=== PATIENT | male | born 1970 | race Two or more races ===

== ENCOUNTER 2021-08-25 22:38 | Inpatient (IN) | payer OTHER ==
[2021-08-25 23:16] VITALS: BMI 20.8
[2021-08-25] MEDS ORDERED: ONDANSETRON *ODT* 4 MG TABLET SL PRN (23:23)
[2021-08-25] MEDS ORDERED: MENTHOL/PHENOL 1 EACH UD MM PRN (23:23)
[2021-08-25] MEDS ORDERED: NICOTINE POLACRILEX 2 MG GUM BUC PRN (23:23)
[2021-08-25] MEDS ORDERED: ACETAMINOPHEN 325 MG TABLET (FP) PO PRN ×2 (23:23)
[2021-08-25] MEDS ORDERED: BISMUTH SUBSALICYLATE 524 MG/30 ML PO PRN (23:23)
[2021-08-25] MEDS ORDERED: IBUPROFEN 400 MG TABLET (FP) PO PRN (23:23)
[2021-08-25] MEDS ORDERED: MAGNESIUM HYDROX 2400MG/30ML ORAL SUSPENSION 30 ML CUP PO PRN (23:23)
[2021-08-25] MEDS ORDERED: MAG HYDROX/AL HYDROX/SIMETH 30 ML UNIT-DOSE CUP PO PRN (23:23)
[2021-08-25] MEDS ORDERED: MAGNESIUM CITRATE 300 ML BOTTLE PO PRN (23:23)
[2021-08-25] MEDS ORDERED: LOPERAMIDE HCL 2 MG CAPSULE PO PRN (23:23)
[2021-08-25] MEDS ORDERED: methaDONE HCL 10 MG TABLET (FOR DETOX USE ONLY) PO ONE (23:25)
[2021-08-26] MEDS ORDERED: methaDONE HCL 10 MG TABLET (FOR DETOX USE ONLY) ONE (02:09)
[2021-08-26] MEDS: METHOCARBAMOL 500 MG TABLET PO PRN ×3 (02:44→22:12)
[2021-08-26] MEDS: hydrOXYzine PAMOATE 25 MG CAPSULE (FP) PO PRN ×2 (02:44→20:24)
[2021-08-26] MEDS: cloNIDine HCL 0.1 MG TABLET PO PRN ×2 (06:42→17:54)
[2021-08-26] MEDS ORDERED: methaDONE HCL 10 MG TABLET (FOR DETOX USE ONLY) PO ONE ×2 (10:00→10:26)
[2021-08-26] MEDS: PRENATAL VITAMINS W/ FOLIC ACID TABLET (FP) PO SCH (10:13)
[2021-08-26 11:57] LABS: HEMATOCRIT 38.5 % (35.4-49); HEMOGLOBIN 12.5 GM/dL (11.7-16.9); MCHC 32.4 g/dl (32.0-35.9); MEAN CELL VOLUME 89.5 fl (80-96); MEAN PLT VOLUME 11.2 fl (7.5-11.1); PLATELET COUNT 136 10^3/uL (134-434); RDW 13.3 % (11.9-15.9)
[2021-08-26] MEDS: diazePAM 5 MG TABLET PO PRN ×3 (12:09→22:13)
[2021-08-26 12:17] LABS: ALBUMIN 3.3 g/dl (3.4-5.0); CALCIUM 8.4 mg/dL (8.5-10.1)
[2021-08-26 12:21] LABS: CREATININE 0.8 mg/dL (0.55-1.3)
[2021-08-26 12:22] LABS: BILIRUBIN,TOTAL 0.6 mg/dL (0.2-1); TOT PROT 5.9 g/dl (6.4-8.2)
[2021-08-26 16:01] LABS: HIV INTERPRETATION NEGATIVE (NEGATIVE)
[2021-08-26] MEDS: THIAMINE HCL 100 MG TABLET (FP) PO SCH (22:12)
[2021-08-26] MEDS: MELATONIN 5 MG TABLETS PO PRN (22:12)
[2021-08-27] MEDS: cloNIDine HCL 0.1 MG TABLET PO PRN (00:33)
[2021-08-27] MEDS: hydrOXYzine PAMOATE 25 MG CAPSULE (FP) PO PRN ×2 (00:33→22:15)
[2021-08-27] MEDS ORDERED: methaDONE HCL 10 MG TABLET (FOR DETOX USE ONLY) PO ONE ×2 (10:00)
[2021-08-27] MEDS: PRENATAL VITAMINS W/ FOLIC ACID TABLET (FP) PO SCH (10:31)
[2021-08-27] MEDS: diazePAM 5 MG TABLET PO PRN ×2 (10:31→22:15)
[2021-08-27] MEDS: METHOCARBAMOL 500 MG TABLET PO PRN (22:15)
[2021-08-27] MEDS: THIAMINE HCL 100 MG TABLET (FP) PO SCH (22:15)
[2021-08-27] MEDS: MELATONIN 5 MG TABLETS PO PRN (22:15)
[2021-08-28] MEDS ORDERED: methaDONE HCL 10 MG TABLET (FOR DETOX USE ONLY) PO ONE ×2 (01:00→10:00)
[2021-08-28] MEDS: PRENATAL VITAMINS W/ FOLIC ACID TABLET (FP) PO SCH (11:09)
[2021-08-28] MEDS: hydrOXYzine PAMOATE 25 MG CAPSULE (FP) PO PRN ×2 (17:31→22:33)
[2021-08-28] MEDS: diazePAM 5 MG TABLET PO PRN ×2 (17:32→22:35)
[2021-08-28] MEDS: cloNIDine HCL 0.1 MG TABLET PO PRN (17:32)
[2021-08-28] MEDS: CALCIUM CARBONATE 650 MG TABLET PO SCH (22:33)
[2021-08-28] MEDS: MELATONIN 5 MG TABLETS PO PRN (22:33)
[2021-08-28] MEDS: THIAMINE HCL 100 MG TABLET (FP) PO SCH (22:33)
[2021-08-28] MEDS: METHOCARBAMOL 500 MG TABLET PO PRN (22:34)
[2021-08-29] MEDS: diazePAM 5 MG TABLET PO PRN (03:26)
[2021-08-29] MEDS: CALCIUM CARBONATE 650 MG TABLET PO SCH ×2 (10:27→22:27)
[2021-08-29] MEDS: PRENATAL VITAMINS W/ FOLIC ACID TABLET (FP) PO SCH (10:27)
[2021-08-29] MEDS: METHOCARBAMOL 500 MG TABLET PO PRN (17:40)
[2021-08-29] MEDS: cloNIDine HCL 0.1 MG TABLET PO PRN (17:40)
[2021-08-29] MEDS: hydrOXYzine PAMOATE 25 MG CAPSULE (FP) PO PRN (17:40)
[2021-08-29] MEDS: THIAMINE HCL 100 MG TABLET (FP) PO SCH (22:27)
[2021-08-29] MEDS: MELATONIN 5 MG TABLETS PO PRN (22:28)
[2021-08-30] MEDS: hydrOXYzine PAMOATE 25 MG CAPSULE (FP) PO PRN ×2 (02:21→22:14)
[2021-08-30] MEDS: METHOCARBAMOL 500 MG TABLET PO PRN ×2 (02:21→22:15)
[2021-08-30] MEDS ORDERED: methaDONE HCL 10 MG TABLET (FOR DETOX USE ONLY) PO ONE (10:00)
[2021-08-30] MEDS: PRENATAL VITAMINS W/ FOLIC ACID TABLET (FP) PO SCH (10:37)
[2021-08-30] MEDS: CALCIUM CARBONATE 650 MG TABLET PO SCH ×2 (10:37→22:13)
[2021-08-30] MEDS: THIAMINE HCL 100 MG TABLET (FP) PO SCH (22:14)
[2021-08-30] MEDS: MELATONIN 5 MG TABLETS PO PRN (22:14)
[2021-08-31] MEDS: cloNIDine HCL 0.1 MG TABLET PO PRN (00:35)
[2021-08-31 08:49] VITALS: BP 128/73; PULSE 77; TEMP 96.8
[2021-08-31] MEDS: PRENATAL VITAMINS W/ FOLIC ACID TABLET (FP) PO SCH (09:19)
== END 2021-08-31 09:15 | disposition home or self-care (01) | DRG 773 ==
LOC: YASAS 22:38 → Y3N 08-26 01:59
PROVIDERS: ADMIT Allergy & Immunology; ATTEND Allergy & Immunology
PROC: HZ2ZZZZ Detoxification Services for Substance Abuse Treatment (ICD-10-PCS; principal; 2021-08-26)
DX: F11.23 Opioid dependence with withdrawal (principal); F14.20 Cocaine dependence, uncomplicated; F10.10 Alcohol abuse, uncomplicated; F17.210 Nicotine dependence, cigarettes, uncomplicated; R03.0 Elevated blood-pressure reading, without diagnosis of hypertension; E83.51 Hypocalcemia
CPT/HCPCS: 36415; 80053; 85027; 86780; 87389; 87811; C9803; J0735; U0003; U0005

== ENCOUNTER 2021-12-25 09:06 | Inpatient (IN) | payer OTHER ==
[2021-12-25 11:22] VITALS: BMI 21.9
[2021-12-25] MEDS ORDERED: hydrOXYzine PAMOATE 25 MG CAPSULE (FP) PO PRN (11:29)
[2021-12-25] MEDS ORDERED: MAGNESIUM HYDROX 2400MG/30ML ORAL SUSPENSION 30 ML CUP PO PRN (11:29)
[2021-12-25] MEDS ORDERED: MAG HYDROX/AL HYDROX/SIMETH 30 ML UNIT-DOSE CUP PO PRN (11:29)
[2021-12-25] MEDS ORDERED: ONDANSETRON *ODT* 4 MG TABLET SL PRN (11:29)
[2021-12-25] MEDS ORDERED: CALAMINE 8% TOPICAL LOTION 177 ML BOTTLE TP PRN (11:29)
[2021-12-25] MEDS ORDERED: BENZOCAINE/MENTHOL (CHLORASEPTIC ) LOZENGE MM PRN (11:29)
[2021-12-25] MEDS ORDERED: BISMUTH SUBSALICYLATE 524 MG/30 ML PO PRN (11:29)
[2021-12-25] MEDS ORDERED: DICYCLOMINE HCL 10 MG CAPSULE PO PRN (11:29)
[2021-12-25] MEDS ORDERED: IBUPROFEN 400 MG TABLET (FP) PO PRN (11:29)
[2021-12-25] MEDS ORDERED: IBUPROFEN 600 MG TABLET (FP) PO PRN (11:29)
[2021-12-25] MEDS ORDERED: MAGNESIUM CITRATE 300 ML BOTTLE PO PRN (11:29)
[2021-12-25] MEDS ORDERED: ACETAMINOPHEN 325 MG TABLET (FP) PO PRN ×2 (11:29)
[2021-12-25] MEDS ORDERED: LOPERAMIDE HCL 2 MG CAPSULE PO PRN (11:29)
[2021-12-25] MEDS ORDERED: cloNIDine HCL 0.1 MG TABLET PO ONE (11:31)
[2021-12-25] MEDS ORDERED: diazePAM 5 MG TABLET PO PRN ×2 (11:31→16:47)
[2021-12-25] MEDS ORDERED: methaDONE HCL 10 MG TABLET (FOR DETOX USE ONLY) PO ONE (16:47)
[2021-12-25] MEDS: diazePAM 5 MG TABLET PO SCH ×2 (17:42→22:16)
[2021-12-25] MEDS: cloNIDine HCL 0.1 MG TABLET PO PRN ×2 (19:00→22:45)
[2021-12-25] MEDS: METHOCARBAMOL 500 MG TABLET PO PRN (22:16)
[2021-12-25] MEDS: MELATONIN 5 MG TABLETS PO SCH (22:16)
[2021-12-25] MEDS: THIAMINE HCL 100 MG TABLET (FP) PO SCH (22:17)
[2021-12-26] MEDS: diazePAM 5 MG TABLET PO SCH ×4 (06:52→22:15)
[2021-12-26] MEDS ORDERED: methaDONE HCL 10 MG TABLET (FOR DETOX USE ONLY) ONE (08:54)
[2021-12-26] MEDS ORDERED: cloNIDine HCL 0.1 MG TABLET PO PRN (09:33)
[2021-12-26] MEDS ORDERED: methaDONE HCL 10 MG TABLET (FOR DETOX USE ONLY) PO ONE (09:33)
[2021-12-26] MEDS ORDERED: diazePAM 5 MG TABLET PO PRN (09:33)
[2021-12-26] MEDS: PRENATAL VITAMINS W/ FOLIC ACID TABLET (FP) PO SCH (10:09)
[2021-12-26 10:40] LABS: HEMATOCRIT 41.7 % (35.4-49); HEMOGLOBIN 13.7 GM/dL (11.7-16.9); MCH 28.9 pg (25.7-33.7); MCHC 32.9 g/dl (32.0-35.9); MEAN PLT VOLUME 10.8 fl (7.5-11.1); PLATELET COUNT 149 10^3/uL (134-434); RBC 4.74 M/mm3 (4.00-5.60); RDW 13.6 % (11.9-15.9); WHITE BLOOD COUNT 5.4 K/mm3 (4.0-10.0)
[2021-12-26 10:45] LABS: ALBUMIN 3.7 g/dl (3.4-5.0); BLOOD UREA NITROGEN 13.3 mg/dL (7-18); CREATININE 0.7 mg/dL (0.55-1.3)
[2021-12-26 10:47] LABS: BILIRUBIN,TOTAL 0.9 mg/dL (0.2-1); TOT PROT 6.8 g/dl (6.4-8.2)
[2021-12-26] MEDS ORDERED: diazePAM 5 MG TABLET PO SCH (11:00)
[2021-12-26] MEDS: MELATONIN 5 MG TABLETS PO SCH (22:15)
[2021-12-26] MEDS: THIAMINE HCL 100 MG TABLET (FP) PO SCH (22:15)
[2021-12-26] MEDS: METHOCARBAMOL 500 MG TABLET PO PRN (22:15)
[2021-12-27] MEDS: diazePAM 5 MG TABLET PO SCH ×3 (05:27→22:27)
[2021-12-27] MEDS ORDERED: methaDONE HCL 10 MG TABLET (FOR DETOX USE ONLY) PO ONE (10:00)
[2021-12-27] MEDS: PRENATAL VITAMINS W/ FOLIC ACID TABLET (FP) PO SCH (10:16)
[2021-12-27] MEDS: MELATONIN 5 MG TABLETS PO SCH (22:27)
[2021-12-27] MEDS: THIAMINE HCL 100 MG TABLET (FP) PO SCH (22:27)
[2021-12-27] MEDS: METHOCARBAMOL 500 MG TABLET PO PRN (22:29)
[2021-12-28] MEDS: diazePAM 5 MG TABLET PO SCH ×2 (05:11→18:15)
[2021-12-28] MEDS ORDERED: diazePAM 5 MG TABLET PO SCH (06:00)
[2021-12-28] MEDS ORDERED: methaDONE HCL 10 MG TABLET (FOR DETOX USE ONLY) ONE (09:49)
[2021-12-28] MEDS ORDERED: methaDONE HCL 10 MG TABLET (FOR DETOX USE ONLY) PO ONE (10:00)
[2021-12-28] MEDS: PRENATAL VITAMINS W/ FOLIC ACID TABLET (FP) PO SCH (10:43)
[2021-12-28] MEDS ORDERED: NICOTINE 10 MG CARTRIDGE (INHALER) IH PRN (19:51)
[2021-12-28] MEDS: MELATONIN 5 MG TABLETS PO SCH (22:16)
[2021-12-28] MEDS: diazePAM 5 MG TABLET PO PRN (22:16)
[2021-12-28] MEDS: METHOCARBAMOL 500 MG TABLET PO PRN (22:16)
[2021-12-28] MEDS: THIAMINE HCL 100 MG TABLET (FP) PO SCH (22:16)
[2021-12-29] MEDS ORDERED: diazePAM 5 MG TABLET PO ONE (06:00)
[2021-12-29] MEDS ORDERED: diazePAM 5 MG TABLET PO SCH (06:00)
[2021-12-29] MEDS ORDERED: diazePAM 5 MG TABLET PO PRN (09:57)
[2021-12-29] MEDS ORDERED: methaDONE HCL 10 MG TABLET (FOR DETOX USE ONLY) PO ONE (10:00)
[2021-12-29] MEDS: PRENATAL VITAMINS W/ FOLIC ACID TABLET (FP) PO SCH (10:20)
[2021-12-29] MEDS: THIAMINE HCL 100 MG TABLET (FP) PO SCH (22:21)
[2021-12-29] MEDS: diazePAM 5 MG TABLET PO PRN (22:21)
[2021-12-29] MEDS: MELATONIN 5 MG TABLETS PO SCH (22:21)
[2021-12-29] MEDS: METHOCARBAMOL 500 MG TABLET PO PRN (22:21)
[2021-12-30] MEDS ORDERED: diazePAM 5 MG TABLET PO ONE (06:00)
[2021-12-30] MEDS ORDERED: methaDONE HCL 10 MG TABLET (FOR DETOX USE ONLY) PO ONE (10:00)
[2021-12-30 10:25] VITALS: BP 133/73; PULSE 81; TEMP 97.5
[2021-12-30] MEDS: PRENATAL VITAMINS W/ FOLIC ACID TABLET (FP) PO SCH (10:28)
== END 2021-12-30 12:01 | disposition home or self-care (01) | DRG 773 ==
LOC: YASAS 09:06 → UNDOADMIN 13:04 → Y3N 13:04
PROVIDERS: ADMIT Allergy & Immunology; ATTEND Surgery
PROC: HZ2ZZZZ Detoxification Services for Substance Abuse Treatment (ICD-10-PCS; principal; 2021-12-25)
DX: F11.23 Opioid dependence with withdrawal (principal); F10.230 Alcohol dependence with withdrawal, uncomplicated; F14.20 Cocaine dependence, uncomplicated; F17.210 Nicotine dependence, cigarettes, uncomplicated
CPT/HCPCS: 36415; 80053; 85027; 86780; C9803-CS; J0735; U0003; U0005

== ENCOUNTER 2022-05-18 10:55 | Inpatient (IN) | payer OTHER ==
[2022-05-18 12:33] VITALS: BMI 21.7
[2022-05-18] MEDS ORDERED: IBUPROFEN 600 MG TABLET (FP) PO PRN (13:13)
[2022-05-18] MEDS ORDERED: diazePAM 5 MG TABLET PO PRN (13:13)
[2022-05-18] MEDS ORDERED: DICYCLOMINE HCL 10 MG CAPSULE PO PRN (13:13)
[2022-05-18] MEDS ORDERED: MAGNESIUM HYDROX 2400MG/30ML ORAL SUSPENSION 30 ML CUP PO PRN (13:13)
[2022-05-18] MEDS ORDERED: ACETAMINOPHEN 325 MG TABLET (FP) PO PRN ×2 (13:13)
[2022-05-18] MEDS ORDERED: hydrOXYzine PAMOATE 25 MG CAPSULE (FP) PO PRN (13:13)
[2022-05-18] MEDS ORDERED: ONDANSETRON *ODT* 4 MG TABLET SL PRN (13:13)
[2022-05-18] MEDS ORDERED: IBUPROFEN 400 MG TABLET (FP) PO PRN (13:13)
[2022-05-18] MEDS ORDERED: BENZOCAINE/MENTHOL (CHLORASEPTIC ) LOZENGE MM PRN (13:13)
[2022-05-18] MEDS ORDERED: NALOXONE HCL (KLOXXADO) 8 MG SPRAY NS PRN (13:13)
[2022-05-18] MEDS ORDERED: NICOTINE 10 MG CARTRIDGE (INHALER) IH PRN (13:13)
[2022-05-18] MEDS ORDERED: POLYETHYLENE GLYCOL (HEALTHYLAX) 3350 17 GM PACKET PO PRN (13:13)
[2022-05-18] MEDS ORDERED: LOPERAMIDE HCL 2 MG CAPSULE PO PRN (13:13)
[2022-05-18] MEDS ORDERED: MAG HYDROX/AL HYDROX/SIMETH 30 ML UNIT-DOSE CUP PO PRN (13:13)
[2022-05-18] MEDS ORDERED: BISMUTH SUBSALICYLATE 524 MG/30 ML PO PRN (13:13)
[2022-05-18] MEDS ORDERED: methaDONE HCL 10 MG TABLET (FOR DETOX USE ONLY) ONE (13:58)
[2022-05-18] MEDS ORDERED: methaDONE HCL 10 MG TABLET (FOR DETOX USE ONLY) PO ONE (14:15)
[2022-05-18] MEDS ORDERED: cloNIDine HCL 0.1 MG TABLET ONE (14:18)
[2022-05-18] MEDS: cloNIDine HCL 0.1 MG TABLET PO PRN (14:19)
[2022-05-18] MEDS: NICOTINE 14 MG/24 HOURS TOPICAL PATCH TD SCH (14:42)
[2022-05-18] MEDS: PRENATAL VITAMINS W/ FOLIC ACID TABLET (FP) PO SCH (14:42)
[2022-05-18 16:07] LABS: ALBUMIN 3.8 g/dl (3.4-5.0); BLOOD UREA NITROGEN 22.3 mg/dL (7-18)
[2022-05-18 16:08] LABS: CALCIUM 8.7 mg/dL (8.5-10.1)
[2022-05-18 16:10] LABS: CREATININE 0.7 mg/dL (0.55-1.3)
[2022-05-18 16:12] LABS: BILIRUBIN,TOTAL 0.7 mg/dL (0.2-1); TOT PROT 6.6 g/dl (6.4-8.2)
[2022-05-18 16:19] LABS: HEMATOCRIT 37.7 % (35.4-49); HEMOGLOBIN 12.4 GM/dL (11.7-16.9); MCHC 32.9 g/dl (32.0-35.9); MEAN CELL VOLUME 88.2 fl (80-96); MEAN PLT VOLUME 10.8 fl (7.5-11.1); PLATELET COUNT 163 10^3/uL (134-434); RBC 4.28 M/mm3 (4.00-5.60); RDW 13.2 % (11.9-15.9)
[2022-05-18] MEDS ORDERED: diazePAM 5 MG TABLET PO SCH (17:00)
[2022-05-18] MEDS: METHOCARBAMOL 500 MG TABLET PO PRN (21:55)
[2022-05-18] MEDS: THIAMINE HCL 100 MG TABLET (FP) PO SCH (21:55)
[2022-05-18] MEDS: MELATONIN 5 MG TABLETS PO SCH (21:55)
[2022-05-19] MEDS: PRENATAL VITAMINS W/ FOLIC ACID TABLET (FP) PO SCH (10:27)
[2022-05-19] MEDS: NICOTINE 14 MG/24 HOURS TOPICAL PATCH TD SCH (10:29)
[2022-05-19] MEDS: cloNIDine HCL 0.1 MG TABLET PO PRN (22:32)
[2022-05-19] MEDS: MELATONIN 5 MG TABLETS PO SCH (22:32)
[2022-05-19] MEDS: THIAMINE HCL 100 MG TABLET (FP) PO SCH (22:32)
[2022-05-19] MEDS: METHOCARBAMOL 500 MG TABLET PO PRN (22:32)
[2022-05-20] MEDS ORDERED: diazePAM 5 MG TABLET PO SCH (06:00)
[2022-05-20] MEDS ORDERED: methaDONE HCL 10 MG TABLET (FOR DETOX USE ONLY) PO ONE (10:00)
[2022-05-20] MEDS: METHOCARBAMOL 500 MG TABLET PO PRN ×2 (10:38→22:26)
[2022-05-20] MEDS: NICOTINE 14 MG/24 HOURS TOPICAL PATCH TD SCH (10:38)
[2022-05-20] MEDS: PRENATAL VITAMINS W/ FOLIC ACID TABLET (FP) PO SCH (10:38)
[2022-05-20] MEDS: MELATONIN 5 MG TABLETS PO SCH (22:24)
[2022-05-20] MEDS: THIAMINE HCL 100 MG TABLET (FP) PO SCH (22:24)
[2022-05-20] MEDS: diazePAM 5 MG TABLET PO PRN (22:26)
[2022-05-21] MEDS ORDERED: diazePAM 5 MG TABLET PO SCH (06:00)
[2022-05-21] MEDS: NICOTINE 14 MG/24 HOURS TOPICAL PATCH TD SCH (10:19)
[2022-05-21] MEDS: PRENATAL VITAMINS W/ FOLIC ACID TABLET (FP) PO SCH (10:20)
[2022-05-21] MEDS: MELATONIN 5 MG TABLETS PO SCH (22:14)
[2022-05-21] MEDS: THIAMINE HCL 100 MG TABLET (FP) PO SCH (22:14)
[2022-05-21] MEDS: diazePAM 5 MG TABLET PO PRN (22:15)
[2022-05-21] MEDS: METHOCARBAMOL 500 MG TABLET PO PRN (22:16)
[2022-05-22] MEDS ORDERED: diazePAM 5 MG TABLET PO ONE (06:00)
[2022-05-22] MEDS ORDERED: methaDONE HCL 10 MG TABLET (FOR DETOX USE ONLY) PO ONE (10:00)
[2022-05-22] MEDS: METHOCARBAMOL 500 MG TABLET PO PRN ×2 (10:28→22:05)
[2022-05-22] MEDS: PRENATAL VITAMINS W/ FOLIC ACID TABLET (FP) PO SCH (10:28)
[2022-05-22] MEDS: NICOTINE 14 MG/24 HOURS TOPICAL PATCH TD SCH (10:29)
[2022-05-22 17:10] VITALS: RESP 18
[2022-05-22] MEDS: diazePAM 5 MG TABLET PO PRN (22:05)
[2022-05-22] MEDS: MELATONIN 5 MG TABLETS PO SCH (22:06)
[2022-05-22] MEDS: THIAMINE HCL 100 MG TABLET (FP) PO SCH (22:06)
[2022-05-23 06:10] VITALS: BP 156/89; PULSE 58; TEMP 96.9
== END 2022-05-23 09:31 | disposition home or self-care (01) | DRG 773 ==
LOC: YASAS 10:55 → Y3N 14:14
PROVIDERS: ADMIT Allergy & Immunology; ATTEND Surgery
PROC: HZ2ZZZZ Detoxification Services for Substance Abuse Treatment (ICD-10-PCS; principal; 2022-05-18)
DX: F11.23 Opioid dependence with withdrawal (principal); F14.20 Cocaine dependence, uncomplicated; F17.210 Nicotine dependence, cigarettes, uncomplicated; R79.89 Other specified abnormal findings of blood chemistry
CPT/HCPCS: 36415; 80053; 85027; 86780; C9803-CS; U0003; U0005